=== PATIENT | male | born 1975 | race Two or more races ===

== ENCOUNTER 2018-02-04 15:46 | Outpatient (CLI) | payer OTHER | END 2018-02-04 16:01 | disposition home or self-care (01) | LOC: RAD 15:46 | DX: S50.02XA Contusion of left elbow, initial encounter (principal) ==

== ENCOUNTER 2020-12-24 08:29 | Outpatient (CLI) | payer OTHER | END 2020-12-24 08:38 | disposition home or self-care (01) | LOC: SONOGRAMA 08:29 | PROVIDERS: ATTEND Physical Medicine & Rehabilitation | DX: M77.12 Lateral epicondylitis, left elbow (principal) ==

== ENCOUNTER 2021-05-13 16:22 | Outpatient (CLI) | payer OTHER | END 2021-05-13 16:23 | disposition home or self-care (01) | LOC: RAD 16:22 | PROVIDERS: ATTEND Neurological Surgery | DX: M54.50 Low back pain, unspecified (principal) ==

== ENCOUNTER → 2021-06-20 | Outpatient (CLI) | payer OTHER | END | disposition home or self-care (01) | LOC: NUCLEAR 07:29 | PROVIDERS: ATTEND Neurological Surgery | DX: M54.50 Low back pain, unspecified (principal) ==

== ENCOUNTER 2023-12-16 14:48 | Outpatient (CLI) | payer OTHER ==
[~2023-12-16 14:48] MED LIST: ZANAFLEX2 M1 PO
== END 2023-12-16 15:13 | disposition home or self-care (01) ==
LOC: RAD 14:48
PROVIDERS: ATTEND Orthopaedic Surgery Orthopaedic Surgery of the Spine
DX: M54.51 Vertebrogenic low back pain (principal)